=== PATIENT | female | born 1975 | race Caucasian/White ===

== ENCOUNTER 2020-09-22 16:09 | Emergency (ER) | payer OTHER ==
[~2020-09-22] VITALS: Ht 144.8 cm; Wt 70.8 kg
[2020-09-22 16:11] VITALS: BP 123/81; Ht 144.8 cm; Wt 70.8 kg
== END 2020-09-22 17:51 | disposition home or self-care (01) ==
LOC: ED 16:09
DX: U07.1 COVID-19 (principal); J12.82 Pneumonia due to coronavirus disease 2019